=== PATIENT | male | born 1980 | race Caucasian/White ===

== ENCOUNTER 2023-05-16 14:35 | Emergency (ER) | payer OTHER, MEDICARE, SELFPAY ==
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
[2023-05-16 15:24] VITALS: BP 116/78; BP 158/92; PULSE 108; PULSE 80; RESP 18; TEMP 36.3; O2SAT 97; O2SAT 98; BMI 36.0
[2023-05-16 15:58] VITALS: BP 119/75; PULSE 72; RESP 16; TEMP 36.2; O2SAT 94
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
[2023-05-16 18:46] VITALS: BP 128/89; PULSE 79; RESP 16; TEMP 36.2; O2SAT 97
== END 2023-05-16 18:49 | disposition home or self-care (01) ==
PROVIDERS: Emergency Provider Emergency Medicine
DX: S80.01XA Contusion of right knee, initial encounter (principal); S13.4XXA Sprain of ligaments of cervical spine, initial encounter; R51.9 Headache, unspecified; M54.50 Low back pain, unspecified; M54.2 Cervicalgia; V43.62XA Car passenger injured in collision with other type car in traffic accident, initial encounter; Y93.9 Activity, unspecified; Y92.410 Unspecified street and highway as the place of occurrence of the external cause; Y99.8 Other external cause status
CPT/HCPCS: 70450; 72125; 99283; 99284